=== PATIENT | female | born 1960 | race Caucasian/White ===

== ENCOUNTER 2017-05-30 22:02 | Emergency (ER) | payer MEDICARE, OTHER ==
[~2017-05-30] VITALS: Ht 149.9 cm; Wt 75.0 kg
[~2017-05-30 22:02] MED LIST: ESCI10TA PO; PRAZ1 PO; QUET200 PO; QUET25 PO
[2017-05-30 22:04] VITALS: BP 142/81; PULSE 95; RESP 16; TEMP 97.8; O2SAT 94
== END 2017-05-30 23:29 | disposition left against medical advice (07) ==
LOC: NED 22:02
DX: F99 Mental disorder, not otherwise specified (principal)
CPT/HCPCS: 99281